=== PATIENT | female | born 1950 | race Caucasian/White ===

== ENCOUNTER 2018-04-30 11:59 | Observation (INO) | payer MEDICARE ==
--- NOTE | 2018-04-30 12:58 | RAD ---
CHEST 1 VIEW: HISTORY: Chest pain. COMPARISON: Prior 04/30/2018, 7:22 a.m. study. FINDINGS: Heart size is normal. The lungs are clear. No confluent pneumonia, overt edema, or pleural effusion . IMPRESSION: Stable chest from earlier this morning. No evidence for pneumonia, edema, or other acute process. POS: [facility]
--- NOTE | 2018-04-30 14:56 | HP ---
PRIMARY CARE PHYSICIAN: [facility] Call admission. REASON FOR ADMISSION: Chest pain. HISTORY OF PRESENT ILLNESS: A 68-year-old female, who has underlying history of hypothyroidism and hypertension. Lately, she is in lot of stress and states dealing with , who is in end stage of his life. The patient was talking to her daughter. At that time, she was having chest tightness, which she was attributing to be due to anxiety and stress, but when she finished conversation with her daughter, her pain had improved. Her family member made her to go to [facility], where she was evaluated. Her routine blood test was unremarkable including cardiogram was nonspecific. Subsequently, family member and patient decided to be transferred in our hospital for further evaluation. She reports that she is pretty much active. 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 She is in lot of omental stress lately. She denies any orthopnea, PND, or leg swelling. She denies any associated nausea, vomiting, or diaphoresis. She does not have any fever or chills. She does not have any flu-like illness. She does not have any constipation, diarrhea, melena, and hematochezia. REVIEW OF SYSTEMS: CONSTITUTIONAL: Negative for weight loss or gain, ability to conduct usual activities. SKIN: Negative for rash, itching. EYES: Negative for double vision, pain. ENT/MOUTH: Negative for nose bleeding, neck stiffness, pain, tenderness. CARDIOVASCULAR: Negative for palpitations, dyspnea on exertion, orthopnea. RESPIRATORY: Negative for shortness of breath, wheezing, cough, hemoptysis, fever or night sweats. GASTROINTESTINAL: Negative for poor appetite, abdominal pain, heartburn, nausea, vomiting, constipation, or diarrhea. GENITOURINARY: Negative for urgency, frequency, dysuria, nocturia. MUSCULOSKELETAL: Negative for pain, swelling. NEUROLOGIC/PSYCHIATRIC: Negative for anxiety, depression. ALLERGY/IMMUNOLOGIC: Negative for skin rash, bleeding tendency. Please see my HPI for pertinent positive and negative. All other review of systems reviewed and negative except as mentioned in HPI. PAST MEDICAL HISTORY: History of Constantino thyroiditis and subsequent hypothyroidism, asthma, mild intermittent osteoarthritis, hypertension, obesity. PAST SURGICAL HISTORY: Partial thyroidectomy, cholecystectomy, hysterectomy, and tonsillectomy. PAST PSYCHIATRIC HISTORY: Anxiety/depression. SOCIAL HISTORY: The patient is , lives at home with family. No history of tobacco, alcohol, or illicit drug abuse. FAMILY HISTORY: Father had coronary artery disease, but no significant cancer or stroke. ALLERGIES: 1. BACTRIM. 2. CIPRO. 3. INDERAL. 4. METFORMIN. CURRENT HOME MEDICATION: 1. BuSpar 10 mg twice daily. 2. [place] Thyroid 180 mg p.o. daily. 3. Losartan 50 mg p.o. daily. 4. The patient is taking some hormonal pills. EMERGENCY ROOM COURSE: Reviewed. PHYSICAL EXAMINATION: VITAL SIGNS: On arrival, blood pressure 196/105, pulse 79, respiratory rate 22, temperature 98.0, saturation 98% on room air, Weight 103.8 kg. GENERAL: The patient is currently alert, awake, no obvious acute distress. HEENT: Head; normocephalic, atraumatic. Eyes; pupils round, reactive to light. Extraocular muscle intact. ENT; oropharynx within normal limits. Moist mucous membranes. No oral lesion. No pharyngeal erythema. No exudate. NECK: Supple. Surgical scar noted. LUNGS: Clear to auscultation without any rhonchi or rales. CARDIAC: S1, S2 regular. A 2/6 systolic murmur noted parasternally and at apex. No gallop. No rub. ABDOMEN: Obesity. Bowel sounds present. Nontender. Nondistended. No organomegaly. No mass. No suprapubic tenderness. BACK: Unremarkable. No CVA tenderness. EXTREMITIES: Upper extremities, passive movement of all joints are normal. Lower extremity, no edema. Good distal pulsation. SKIN: No skin rash. HEMATOLOGIC: No lymphadenopathy. PSYCHIATRIC: Normal affect. SIGNIFICANT LABS: Blood test done at [place] reviewed. Currently CBC; WBC 3.6, hemoglobin 13.8, platelet 170. BMP; sodium 140, potassium 4.1, chloride 106, carbon dioxide 25, anion gap 13, BUN 15, creatinine 0.7. LFT; AST 13, ALT 21, alkaline phosphatase 58, albumin 4.1, lipase 18. CK 41, CK-MB 0.9, troponin less than 0.010. EKG showing sinus rhythm without any obvious ischemic changes. ASSESSMENT AND PLAN: 1. Chest pain, most likely this patient's chest pain description is anxiety neurosis related, stress related, underlying cardiac etiology cannot be entirely excluded. This patient's cardiac enzymes are negative. EKG is nonspecific. We will check lipid profile for risk stratification. This patient has osteoarthritis. She cannot walk on treadmill and that is why we will do pharmacological stress test. We will monitor vitals and telemetry today. We will check lipid profile. We will continue with nitroglycerin patch q.8 hourly and aspirin 325 mg p.o. daily. We will perform stress test tomorrow. Based on stress test result, we will decide discharging her home. 2. Anxiety and depression. Continue BuSpar 10 mg p.o. daily. Continue Xanax 0.25 mg q.i.d. p.r.n. for anxiety. 3. Hypertension. Continue losartan 50 mg p.o. daily. 4. Hypothyroidism. Continue [place] Thyroid 180 mg p.o. daily and check TSH tomorrow. 5. DVT prophylaxis, not needed because we are expecting discharge in 24 hours. 6. Gastrointestinal prophylaxis. Pepcid 20 mg p.o. b.i.d. CODE STATUS: The patient is full code. The patient's daughter is surrogate decision maker. Disposition plan; based on stress test result, likely within 24 hours. Plan of care discussed with the patient and family member at bedside in the emergency room. Job ID: [id number]
[2018-04-30] MEDS ORDERED: Diabetic Tussin 200 MG/10 ML UDCUP PO PRN (15:13)
[2018-04-30] MEDS ORDERED: ALPRAZolam 0.25 MG TAB PO PRN (15:13)
[2018-04-30] MEDS ORDERED: Loratadine 10 MG TAB PO PRN (15:13)
[2018-04-30] MEDS ORDERED: Senokot S 8.6-50 MG TAB PO PRN (15:13)
[2018-04-30] MEDS ORDERED: Eucerin (Mineral Oil/Petrolatum,White) 30 gm Jar TOP PRN (15:13)
[2018-04-30] MEDS ORDERED: Ondansetron ODT 4 MG TAB PO PRN (15:13)
[2018-04-30] MEDS ORDERED: Sodium Chloride 0.65% Nasal 44 ML BOT EA NARE PRN (15:13)
[2018-04-30] MEDS ORDERED: Cepastat Lozenges 1 LOZ PO PRN (15:13)
[2018-04-30] MEDS ORDERED: Nitroglycerin 0.4 MG TAB (25 Tab Bottle) SL PRN (15:13)
[2018-04-30] MEDS ORDERED: Artificial Tears 18 DROP/0.9 ML EA EYE PRN (15:13)
[2018-04-30] MEDS ORDERED: Ondansetron PF 4 MG/2 ML Vial IVP PRN (15:13)
[2018-04-30] MEDS ORDERED: hydrALAZINE 20 MG/ML VIAL SLOW IVP PRN (15:13)
[2018-04-30] MEDS ORDERED: Bisacodyl 10 MG SUPP PR PRN (15:13)
[2018-04-30] MEDS ORDERED: Calcium Carbonate 500 MG ChewTAB PO PRN (15:13)
[2018-04-30] MEDS ORDERED: Zolpidem Tartrate 5 MG TAB PO PRN (15:13)
[2018-04-30] MEDS ORDERED: Loperamide HCl 2 MG CAP PO PRN (15:13)
[2018-04-30] MEDS ORDERED: Bisacodyl 5 MG TAB PO PRN (15:13)
[2018-04-30 15:33] VITALS: BMI 32.3
[2018-04-30 16:21] LABS: Troponin I Less than 0.010 ng/mL (< 0.028)
[2018-04-30] MEDS ORDERED: Nitroglycerin 2% Ointment 1 INCH/1 GM Packet TOP SCH (16:30)
[2018-04-30] MEDS ORDERED: Prevnar 13-Val Conj/PF 0.5 ML SYRINGE IM ONE (17:15)
[2018-04-30] MEDS: Acetaminophen 325 MG TAB PO PRN (18:24)
[2018-04-30] MEDS: busPIRone HCl 10 MG TAB PO SCH (18:26)
[2018-04-30] MEDS: Famotidine 20 MG TAB PO SCH (20:08)
[2018-04-30] MEDS: Nitroglycerin 2% Ointment 1 INCH/1 GM Packet TOP SCH (21:24)
[2018-05-01] MEDS: Acetaminophen 325 MG TAB PO PRN ×2 (03:55→13:13)
[2018-05-01] MEDS: Nitroglycerin 2% Ointment 1 INCH/1 GM Packet TOP SCH ×2 (04:26→13:15)
[2018-05-01 05:41] LABS: #Eosinphils 0.1 thou/uL (0.0-0.7); #Lymphocytes 1.6 thou/uL (1.20-3.40); #Monocytes 0.5 thou/uL (0.11-0.59); #Neutrophils 2.3 thou/uL (1.40-6.50); %Basophils 1.1 % (0.0-1.0); %Eosinophils 2.3 % (0.0-10.0); %Lymphocytes 34.9 % (21.0-51.0); %Monocytes 10.7 % (0.0-10.0); Hemoglobin 15.3 g/dL (12.0-16.0); Mean Corpuscular HGB CONC 33.7 g/dL (32.0-36.0); Mean Corpuscular Hemoglobin 28.6 pg (27.0-31.0); Platelet Count 213 thou/uL (130-400); RBC Distribution Width 12.8 % (11.5-14.5); Red Blood Cell (RBC) Count 5.36 mill/uL (4.20-5.40); White Blood Cell (WBC) Count 4.5 thou/uL (4.8-10.8)
[2018-05-01 06:03] LABS: ALT (SGPT) 17 U/L (8-55); AST (SGOT) 16 U/L (5-34); Albumin 4.5 g/dL (3.4-4.8); Alkaline Phosphatase 65 U/L (40-150); Anion Gap 12 mmol/L (10-20); BUN (Urea Nitrogen) 14 mg/dL (9.8-20.1); Bilirubin, Total 0.7 mg/dL (0.2-1.2); Calc. Creatinine Clearance 108 mL/min (70-130); Calcium 9.7 mg/dL (7.8-10.44); Carbon Dioxide 28 mmol/L (23-31); Cardiac Risk 6.1 (Less than 4.5); Chloride 104 mmol/L (98-107); Cholesterol 280 mg/dl (< 200 Desired); Estimated GFR-MDRD 72; Globulin 3.1 g/dL (2.4-3.5); Glucose 164 mg/dL (80-115); HDL Cholesterol 46 mg/dL (>60 Neg Risk); LDL Cholesterol, Calculated 184 mg/dL; Potassium 4.3 mmol/L (3.5-5.1); Protein, Total 7.6 g/dL (6.0-8.3); Sodium 140 mmol/L (136-145); Triglycerides 251 mg/dL (Less than 150)
[2018-05-01] MEDS ORDERED: Aspirin 325 MG TAB PO SCH (09:00)
[2018-05-01] MEDS ORDERED: Thyroid 60 MG TAB PO SCH (09:00)
[2018-05-01] MEDS ORDERED: Losartan 25 MG TAB PO SCH (09:00)
--- NOTE | 2018-05-01 10:45 | PDOC.PN ---
- Subjective Encounter Start Date: 05/01/18 Encounter Start Time: 07:10 -: old records requested/rev Patient seen and examined. No new complaints. No overnight events - Objective Resuscitation Status - Order Detail: 04/30/18 13:19 Resuscitation Status Routine Resuscitation Status: FULL: Full Resuscitation MAR Reviewed: Yes Vital Signs & Weight: Vital Signs (12 hours) Temp Pulse Resp BP Pulse Ox 05/01/18 07:24 97.7 F 69 16 150/75 H 96 05/01/18 04:06 98.5 F 79 16 167/88 H 95 Weight Weight 221 lb 11.2 oz I&O: 04/30/18 05/01/18 05/02/18 06:59 06:59 06:59 Intake Total 500 Balance 500 Result Diagrams: 05/01/18 05:09 05/01/18 05:09 EKG Reviewed by me: Yes (nsr) Phys Exam - Physical Examination Constitutional: NAD HEENT: PERRLA, moist MMs, sclera anicteric Neck: no JVD, supple Respiratory: no wheezing, no rales, no rhonchi Cardiovascular: RRR, no significant murmur, no rub Gastrointestinal: soft, non-tender, no distention, positive bowel sounds Musculoskeletal: no edema, pulses present Neurological: non-focal, normal sensation, moves all 4 limbs Lymphatic: no nodes Psychiatric: normal affect, A&O x 3 Skin: no rash, normal turgor Dx/Plan (1) Chest pain Code(s): R07.9 - CHEST PAIN, UNSPECIFIED Status: Acute (2) Dyslipidemia Code(s): E78.5 - HYPERLIPIDEMIA, UNSPECIFIED Status: Chronic Comment: she has statin intolerance (3) Osteoarthritis Code(s): M19.90 - UNSPECIFIED OSTEOARTHRITIS, UNSPECIFIED SITE Status: Chronic (4) Anxiety and depression Code(s): F41.9 - ANXIETY DISORDER, UNSPECIFIED; F32.9 - MAJOR DEPRESSIVE DISORDER, SINGLE EPISODE, UNSPECIFIED Status: Chronic (5) Obesity (BMI 30.0-34.9) Code(s): E66.9 - OBESITY, UNSPECIFIED Status: Chronic - Plan cont current plan of care * today stress test * discharge based on that result * medication reviewed as below * symptomatic treatment. Review of Systems - Review of Systems ENT: negative: Ear Pain, Ear Discharge, Nose Pain, Nose Discharge, Nose Congestion, Mouth Pain, Mouth Swelling, Throat Pain, Throat Swelling, Other Respiratory: negative: Cough, Dry, Shortness of Breath, Hemoptysis, SOB with Excertion, Pleuritic Pain, Sputum, Wheezing Cardiovascular: negative: chest pain, palpitations, orthopnea, paroxysmal nocturnal dyspnea, edema, light headedness, other Gastrointestinal: negative: Nausea, Vomiting, Abdominal Pain, Diarrhea, Constipation, Melena, Hematochezia, Other Genitourinary: negative: Dysuria, Frequency, Incontinence, Hematuria, Retention , Other Musculoskeletal: negative: Neck Pain, Shoulder Pain, Arm Pain, Back Pain, Hand Pain, Leg Pain, Foot Pain, Other Skin: negative: Rash, Lesions, Steve, Bruising, Other - Medications/Allergies Allergies/Adverse Reactions: Allergies Allergy/AdvReac Type Severity Reaction Status Date / Time ciprofloxacin [From Cipro] Allergy Verified 04/30/18 15:34 ciprofloxacin HCl Allergy Verified 04/30/18 15:34 [From Cipro] metformin Allergy Verified 04/30/18 15:34 Aztobqo-Sff-Jkr Reductase Allergy Verified 04/30/18 15:34 Inhibitor sulfamethoxazole Allergy Verified 04/30/18 15:34 [From Bactrim] trimethoprim [From Bactrim] Allergy Verified 04/30/18 15:34 INDERAL Allergy Uncoded 04/30/18 15:34 Medications: Current Medications Acetaminophen (Tylenol) 650 mg PO Q4H PRN PRN Reason: Headache/Fever/Mild Pain (1-3) Last Admin: 05/01/18 03:55 Dose: 650 mg Alprazolam (Xanax) 0.25 mg PO QIDPRN PRN PRN Reason: Anxiety/Restlessness/Sleep Artificial Tears (Tears Naturale) 2 drop EA EYE PRN PRN PRN Reason: Dry Eyes Aspirin (Aspirin) 325 mg PO DAILY ANJEL Bisacodyl (Dulcolax) 10 mg PO DAILYPRN PRN PRN Reason: Constipation Bisacodyl (Dulcolax) 10 mg TN DAILYPRN PRN PRN Reason: Constipation Buspirone HCl (Buspar) 10 mg PO BID [facility] Last Admin: 04/30/18 18:26 Dose: 10 mg Calcium Carbonate (Tums) 1,000 mg PO Q4H PRN PRN Reason: Heartburn or Indigestion Famotidine (Pepcid) 20 mg PO BID [facility] Last Admin: 04/30/18 20:08 Dose: 20 mg Guaifenesin (Robitussin Sf) 200 mg PO Q4H PRN PRN Reason: Cough Hydralazine HCl (Apresoline) 10 mg SLOW IVP Q4H PRN PRN Reason: SBP > 180 and HR < 70 Loperamide HCl (Imodium) 2 mg PO PRN PRN PRN Reason: Diarrhea/Loose Stools Loratadine (Claritin) 10 mg PO DAILYPRN PRN PRN Reason: Sinus Symptoms Losartan Potassium (Cozaar) 50 mg PO DAILY [facility] Mineral Oil/White Petrolatum (Eucerin Cream) 0 gm TOP BIDPRN PRN PRN Reason: Dry Skin Nitroglycerin (Nitrostat) 0.4 mg SL Q5MIN PRN PRN Reason: Chest Pain Nitroglycerin (Nitro-Bid 2% Ointment) 0.5 inch TOP Q8HR [facility] Last Admin: 05/01/18 04:26 Dose: Not Given Ondansetron HCl (Zofran Odt) 4 mg PO Q6H PRN PRN Reason: Nausea/Vomiting Ondansetron HCl (Zofran) 4 mg IVP Q6H PRN PRN Reason: Nausea/Vomiting Senna/Docusate Sodium (Senokot S) 2 tab PO BIDPRN PRN PRN Reason: Constipation Sodium Chloride ([place] Nasal [place] 0.65%) 0 ml EA NARE QIDPRN PRN PRN Reason: Nasal Congestion Throat Lozenges (Cepastat Lozenges) 1 jules PO Q2H PRN PRN Reason: Sore Throat Thyroid ([place] Thyroid) 180 mg PO DAILY [facility] Zolpidem Tartrate (Ambien) 5 mg PO HSPRN PRN PRN Reason: Insomnia
[2018-05-01] MEDS: busPIRone HCl 10 MG TAB PO SCH (13:10)
[2018-05-01] MEDS: Famotidine 20 MG TAB PO SCH (13:13)
[2018-05-01] MEDS ORDERED: Regadenoson 0.4 MG/5 ML SYRINGE ONE (13:18)
--- NOTE | 2018-05-01 15:08 | NM ---
CARDIAC SPECT: CLINICAL HISTORY: 68-year-old female with chest pain, asthma, and hypertension. TECHNIQUE: A myocardial perfusion scan was performed using the single isotope one day protocol with technetium-9 9m sestamibi. 9 mCi were injected intravenously for the rest exam followed by 33 mCi for the stress e xam. Pharmacologic stress with Lexiscan was monitored and interpreted by David Suresh. FINDINGS: Homogeneous tracer distribution is seen in the myocardial segments on stress and rest images without fixed or reversible defects. GATED SPECT LVEF: 78%. WALL MOTION EXAM: Normal. IMPRESSION: Normal myocardial perfusion scan. POS: [facility]
[2018-05-01 16:16] VITALS: TEMP 98.1
[2018-05-01 17:48] VITALS: BP 153/82
--- NOTE | 2018-05-02 11:13 | DIS ---
DATE OF ADMISSION: 04/30/2018 DATE OF DISCHARGE: 05/01/2018 PRIMARY CARE PHYSICIAN: Dr. Cher Buckley. DISCHARGE DISPOSITION: Home. PRIMARY DISCHARGE DIAGNOSES: Chest pain, likely due to anxiety neurosis, ruled out acute coronary syndrome. SECONDARY DISCHARGE DIAGNOSES: Anxiety and depression, dyslipidemia, obesity, osteoarthritis, and hypothyroidism with Constantino thyroiditis. PRIMARY PROCEDURE/OPERATION: None. RADIOLOGICAL INVESTIGATION: Stress test negative for any ischemia. Chest x-ray normal. SIGNIFICANT LABORATORY DATA: WBC 4.5, hemoglobin 15.3, platelet 213. Sodium 140, potassium 4.3, BUN 14, creatinine 0.80, calcium 9.7. LFT normal. LDL 184. TSH 0.75. Cardiac enzyme negative. DISCHARGE MEDICATIONS: 1. Vitamin C 1000 mg p.o. daily. 2. Buspirone 10 mg p.o. b.i.d. 3. Vitamin D3 85567 units p.o. daily. 4. Vitamin B12 1000 mcg p.o. daily. 5. Glucosamine and chondroitin sulfate one tablet daily. 6. Cozaar 25 mg daily. 7. [place] Thyroid 180 mg p.o. daily. 8. Multivitamin one tablet p.o. daily. CONTRAINDICATION: None. CODE STATUS: Full code. INPATIENT VP DIRECTOR OF CREATIVE STRATEGY: None. ALLERGIES: CIPRO AND METFORMIN. DISCHARGE PLAN: Posthospital, the patient will follow up with primary care physician in 1 or 2 weeks. HOSPITAL COURSE: A 68-year-old female who was admitted by me. Please see my HPI for further details. The patient was having chest pain. She was lately in lot of stress to take care of her who is terminally ill. The patient was presented with chest pain at [facility] and subsequently, she was transferred to our hospital. At [facility], routine evaluation including cardiac enzyme and EKG was normal. In our hospital, subsequent cardiac enzyme negative and routine blood test was unremarkable. Her telemetry remained unremarkable. The patient had significantly elevated LDL, but the patient is not tolerating statin therapy despite trying all kind of statin therapy as an outpatient basis. I provided the patient information that there are new monoclonal antibody type of therapies nowadays available to control her cholesterol and that needs to be addressed with help of primary care physician. During this admission, stress test was negative. We did not make any change in her home medication. The patient is seen and examined at bedside today. Please see my progress note from today. Overall, the patient is medically stable for discharge. Job ID: [id number]
== END 2018-05-01 18:39 | disposition home or self-care (01) ==
LOC: ERS 11:59 → 2SW 15:09
PROVIDERS: ADMIT Internal Medicine; ATTEND Internal Medicine
DX: R07.9 Chest pain, unspecified (principal); F41.9 Anxiety disorder, unspecified; F32.9 Major depressive disorder, single episode, unspecified; E03.9 Hypothyroidism, unspecified; E06.3 Autoimmune thyroiditis; I10 Essential (primary) hypertension; E78.5 Hyperlipidemia, unspecified; J45.909 Unspecified asthma, uncomplicated; M19.90 Unspecified osteoarthritis, unspecified site; E66.9 Obesity, unspecified; Z68.31 Body mass index [BMI] 31.0-31.9, adult; Z90.49 Acquired absence of other specified parts of digestive tract; Z90.710 Acquired absence of both cervix and uterus; Z90.89 Acquired absence of other organs; Z88.2 Allergy status to sulfonamides; Z88.1 Allergy status to other antibiotic agents; Z88.8 Allergy status to other drugs, medicaments and biological substances; Z79.3 Long term (current) use of hormonal contraceptives; Z79.899 Other long term (current) drug therapy
CPT/HCPCS: 71045; 78452; 80061; 84484 ×2; 90670; 93005; 93017; 94760 ×2; 99285; A9500; G0009; G0378 ×2; 36415; 80053; 84443; 85025; 90471; J2785

== ENCOUNTER 2018-10-02 12:17 | Emergency (ER) | payer MEDICARE ==
[2018-10-02] MEDS ORDERED: Ketorolac Tromethamine 30 MG/ML VIAL ONE (13:14)
== END 2018-10-02 14:35 | disposition home or self-care (01) ==
LOC: ERS 12:17
DX: R07.89 Other chest pain (principal); I10 Essential (primary) hypertension; J45.909 Unspecified asthma, uncomplicated; M19.90 Unspecified osteoarthritis, unspecified site; Z79.899 Other long term (current) drug therapy
CPT/HCPCS: 36415; 84484; 93005; J1885

== ENCOUNTER 2019-09-13 12:16 | Outpatient (CLI) | payer MEDICARE ==
--- NOTE | 2019-09-13 12:32 | RAD ---
EXAM: Chest 2 views: HISTORY: Dyspnea COMPARISON: None. FINDINGS: There is a normal-sized cardiomediastinal silhouette. There is no evidence of consolidation, mass, or pleural effusion. The bones are unremarkable. IMPRESSION: No evidence of acute cardiopulmonary disease
== END 2019-09-13 12:17 | disposition home or self-care (01) ==
LOC: BICRAD 12:16
PROVIDERS: ATTEND Internal Medicine Critical Care Medicine
DX: R06.00 Dyspnea, unspecified (principal); D86.9 Sarcoidosis, unspecified
CPT/HCPCS: 71046; 80048; 82164; 82306